=== PATIENT | male | born 1995 | race Caucasian/White ===

== ENCOUNTER 2020-04-24 13:40 | Emergency (ER) | payer MEDICAID, OTHER ==
[~2020-04-24] VITALS: Ht 182.9 cm; Wt 70.5 kg
[~2020-04-24 13:40] MED LIST: LIDOcaine 1% W/epiNEPHrine 1:200,000 10ml vial ONE
[2020-04-24] MEDS ORDERED: TETanus/Pertussis (Acell)/Diphther VAC/PF (Tdap-Adult) 0.5ml syringe IMVAC ONE (14:45)
[2020-04-24] MEDS ORDERED: bacitracin 15gm ointment TP ONE (14:45)
[2020-04-24] MEDS ORDERED: CEPH250T PO (15:14)
[2020-04-24] MEDS ORDERED: ibuprofen tablet 400 MG TABLET PO ONE (15:35)
[2020-04-24 15:52] VITALS: BP 125/69
== END 2020-04-24 15:52 | disposition home or self-care (01) ==
LOC: ER 13:41
DX: S61.411A Laceration without foreign body of right hand, initial encounter (principal); Z79.899 Other long term (current) drug therapy; W26.0XXA Contact with knife, initial encounter; Y93.89 Activity, other specified; Y92.89 Other specified places as the place of occurrence of the external cause; Y99.8 Other external cause status
CPT/HCPCS: 12002; 90471; 90715; 99283